=== PATIENT | male | born 1990 | race Two or more races ===

== ENCOUNTER 2018-09-12 11:11 | Outpatient (CLI) | payer OTHER ==
[~2018-09-12 11:11] MED LIST: KETO10TA2 PO
== END 2018-09-12 11:17 | disposition home or self-care (01) ==
LOC: LAB 11:11
DX: I10 Essential (primary) hypertension (principal); E66.8 Other obesity; Z11.3 Encounter for screening for infections with a predominantly sexual mode of transmission; M54.5 Low back pain

== ENCOUNTER 2020-06-06 10:07 | Inpatient (IN) | payer OTHER ==
[~2020-06-06] VITALS: Ht 182.9 cm; Wt 188.2 kg
--- NOTE | 2020-06-06 10:25 | NUR ---
PACIENTE ALERTA Y ORIENTADO. REFIERE TIENE UN ABCESO EN GLUTEO MYKE DESDE HACE 3 DO. NO REFIERE DOLOR AL MOMENTO. SE KATE S/V. SE UBICA EN HAYDEN DE OBSERVACION PARA CONSULTA MEDICA.
[2020-06-06] MEDS ORDERED: CLEOCIN HCL300 MG PO (10:26)
[2020-06-13] MEDS ORDERED: INTESTINEX680 M1 PO (16:34)
[2020-06-13] MEDS ORDERED: BACTRIM DS TAB1 EACH PO (16:35)
== END 2020-06-13 22:00 | disposition home or self-care (01) | DRG 603 ==
LOC: ER 10:07 → SURG 18:29
PROVIDERS: ADMIT Internal Medicine; ATTEND Internal Medicine
PROC: 0H98XZZ Drainage of Buttock Skin, External Approach (ICD-10-PCS; principal; 2020-06-06)
PROC: 02HV33Z Insertion of Infusion Device into Superior Vena Cava, Percutaneous Approach (ICD-10-PCS; 2020-06-09)
DX: L02.31 Cutaneous abscess of buttock (principal); L03.317 Cellulitis of buttock; K61.39 Other ischiorectal abscess; D72.828 Other elevated white blood cell count; E66.01 Morbid (severe) obesity due to excess calories; Z60.4 Social exclusion and rejection